=== PATIENT | female | born 1940 | race Caucasian/White ===

== ENCOUNTER 2016-08-21 16:20 | Emergency (ER) | payer MEDICARE, OTHER ==
[~2016-08-21] VITALS: Ht 160 cm; Wt 61.2 kg
[2016-08-21] MEDS ORDERED: TRAZ-144 PO (18:20)
[2016-08-21] MEDS ORDERED: ASPI81TA2 PO (18:20)
[2016-08-21] MEDS ORDERED: CLON0.5T4 PO (18:20)
[2016-08-21] MEDS ORDERED: RISP0.252 PO (18:20)
[2016-08-21] MEDS ORDERED: POTA10TA15 PO (18:20)
[2016-08-21] MEDS ORDERED: PRAV20TA4 PO (18:20)
[2016-08-21] MEDS ORDERED: CHOL100044 PO (18:20)
[2016-08-21] MEDS ORDERED: OLAN20TA3 PO (18:20)
[2016-08-21] MEDS ORDERED: LEVO50TA8 PO (18:20)
[2016-08-21 19:09] LABS: BASOPHILS # (AUTO) 0.1 /CMM (0.0-0.2); BASOPHILS % (AUTO) 0.9 % (0.0-2.0); DIFF TOTAL % 100 %; HEMATOCRIT 42 % (33-45); HEMOGLOBIN 13.6 g/dL (11.5-14.8); LYMPHOCYTES # (AUTO) 1.5 /CMM (0.8-4.8); LYMPHOCYTES % (AUTO) 20.2 % (20.0-44.0); MEAN CORPUSCULAR HEMOGLOBIN 28 PG (26.0-33.0); MEAN CORPUSCULAR HGB CONC 32 g/dl (31.0-36.0); MEAN CORPUSCULAR VOLUME 87 fL (82-100); MONOCYTES # (AUTO) 0.5 /CMM (0.1-1.30); MONOCYTES % (AUTO) 7.1 % (2.0-12.0); NEUTROPHILS # (AUTO) 5.5 /CMM (1.8-8.9); NEUTROPHILS % (AUTO) 71.8 % (43.0-81.0); PLATELET COUNT (AUTO) 202 /CMM (150-450); RED BLOOD CELL COUNT(AUTO) 4.86 MIL/uL (4.0-5.2); WHITE BLOOD COUNT (AUTO) 7.6 K/uL (4.3-11.0)
[2016-08-21 19:14] LABS: CALCIUM, SERUM 9.1 mg/dL (8.5-10.1); CREATININE 1.1 mg/dL (0.6-1.3); POTASSIUM 4.2 mmol/L (3.5-5.1)
[2016-08-21 19:18] LABS: INR 0.98 (0.87-1.13); PROTHROMBIN TIME 10.3 SECS (9.5-12.7)
[2016-08-21] MEDS ORDERED: CLONIDINE HCL 0.1 MG TABLET ONE (21:49)
[2016-08-21] MEDS ORDERED: CLONIDINE HCL 0.1 MG TABLET PO ONE (22:00)
[2016-08-21] MEDS ORDERED: NITROGLYCERIN 0.4 MG/TAB BOTTLE ONE (23:09)
[2016-08-21] MEDS ORDERED: NITROGLYCERIN 0.4 MG/TAB BOTTLE SL ONE (23:30)
[2016-08-21 23:48] VITALS: BP 162/82
== END 2016-08-21 23:49 | disposition home or self-care (01) ==
LOC: ER 16:25
DX: S09.90XA Unspecified injury of head, initial encounter (principal); S00.83XA Contusion of other part of head, initial encounter; E03.9 Hypothyroidism, unspecified; F03.90 Unspecified dementia, unspecified severity, without behavioral disturbance, psychotic disturbance, mood disturbance, and anxiety; I25.10 Atherosclerotic heart disease of native coronary artery without angina pectoris; F32.9 Major depressive disorder, single episode, unspecified; J44.9 Chronic obstructive pulmonary disease, unspecified; Z88.5 Allergy status to narcotic agent; Z79.82 Long term (current) use of aspirin; W18.39XA Other fall on same level, initial encounter; Y93.9 Activity, unspecified; Y92.9 Unspecified place or not applicable; Y99.9 Unspecified external cause status
CPT/HCPCS: 36415; 70450; 70486; 72125; 80048; 85025; 85730; 93005; 99285; A4606; Z7610

== ENCOUNTER 2017-07-31 12:46 | Emergency (ER) | payer MEDICARE, OTHER ==
[~2017-07-31] VITALS: Ht 160 cm; Wt 61.2 kg
[~2017-07-31 12:46] MED LIST: ASPI81TA2 PO; CHOL100044 PO; CLON0.5T4 PO; LEVO50TA8 PO; OLAN20TA3 PO; POTA10TA15 PO; PRAV20TA4 PO; RISP0.253 PO; TRAZ-144 PO
--- NOTE | 2017-07-31 12:46 | NUR ---
PT BIBRA FROM SNF TO ER BED 10. HERE FOR WORSENING COUGH X 1 WEEK. PT IS AFEBRILE FINANCIAL SYSTEMS ADMINISTRATOR. VERBALLY RESPONSIVE. DENIES PAIN. GOWNED AND PLACED ON MONITOR. NAD NOTED. AWAITING MD KAPADIA.
[2017-07-31] MEDS ORDERED: Magnesium 1GM/D5W 100ML PREMIX 200 ML IV ONE ×2 (12:55→13:05)
--- NOTE | 2017-07-31 12:55 | NUR ---
CALLED DR NISA YATES, LEFT MESSAGE
[2017-07-31] MEDS ORDERED: IPRATROPIUM NEB FS 0.5 MG/2.5 ML AMPUL.NEB NEB ONE (13:00)
[2017-07-31] MEDS ORDERED: methylPREDNISolone SOD SUCC 125 MG/2ML VIAL IV ONE (13:00)
[2017-07-31] MEDS ORDERED: ALBUTEROL FS 2.5 MG/3 ML VIAL.NEB NEB ONE (13:00)
[2017-07-31] MEDS ORDERED: IPRATROPIUM NEB FS 0.5 MG/2.5 ML AMPUL.NEB ONE (13:04)
[2017-07-31] MEDS ORDERED: ALBUTEROL FS 2.5 MG/3 ML VIAL.NEB ONE (13:04)
[2017-07-31 13:05] LABS: BASOPHILS # (AUTO) 0.3 /CMM (0.0-0.2); BASOPHILS % (AUTO) 3.6 % (0.0-2.0); EOSINOPHILS % (AUTO) 0.6 % (0.0-6.0); HEMATOCRIT 42 % (33-45); LYMPHOCYTES # (AUTO) 0.9 /CMM (0.8-4.8); LYMPHOCYTES % (AUTO) 12.4 % (20.0-44.0); MEAN CORPUSCULAR HEMOGLOBIN 29 PG (26.0-33.0); MEAN CORPUSCULAR HGB CONC 33 g/dl (31.0-36.0); MEAN CORPUSCULAR VOLUME 86 fL (82-100); MONOCYTES # (AUTO) 0.9 /CMM (0.1-1.30); MONOCYTES % (AUTO) 11.9 % (2.0-12.0); NEUTROPHILS # (AUTO) 5.1 /CMM (1.8-8.9); NEUTROPHILS % (AUTO) 71.5 % (43.0-81.0); PLATELET COUNT (AUTO) 156 /CMM (150-450); RDW COEFFICIENT OF VARIATION 13.7 (11.5-15.0); RED BLOOD CELL COUNT(AUTO) 4.89 MIL/uL (4.0-5.2); WHITE BLOOD COUNT (AUTO) 7.2 K/uL (4.3-11.0)
[2017-07-31] MEDS ORDERED: methylPREDNISolone SOD SUCC 125 MG/2ML VIAL ONE (13:05)
--- NOTE | 2017-07-31 13:13 | NUR ---
RADIOLOGY AT BEDSIDE FOR CHEST XRAY.
[2017-07-31 13:15] LABS: CALCIUM, SERUM 8.6 mg/dL (8.5-10.1); CARBON DIOXIDE 30 mmol/L (21-32); CHLORIDE 102 mmol/L (98-107); CREATININE 1.1 mg/dL (0.6-1.3); GLUCOSE 99 mg/dL (74-106); POTASSIUM 3.6 mmol/L (3.5-5.1); SODIUM SERUM 139 mmol/L (136-145); UREA NITROGEN, BLOOD 24 mg/dL (7-18)
--- NOTE | 2017-07-31 14:03 | NUR ---
CALLED [facility] FOR TRANSPORTATION GOING BACK TO [facility] ETA 1500
--- NOTE | 2017-07-31 15:37 | NUR ---
PT TRANSFERED BACK TO SNF. STABLE CONDITION. IVRJ D/C'D.
[2017-07-31 15:39] VITALS: BP 132/65
== END 2017-07-31 15:39 | disposition home or self-care (01) ==
LOC: ER 12:54
DX: J44.1 Chronic obstructive pulmonary disease with (acute) exacerbation (principal); F03.90 Unspecified dementia, unspecified severity, without behavioral disturbance, psychotic disturbance, mood disturbance, and anxiety; I25.10 Atherosclerotic heart disease of native coronary artery without angina pectoris; F32.9 Major depressive disorder, single episode, unspecified; E03.9 Hypothyroidism, unspecified; F17.200 Nicotine dependence, unspecified, uncomplicated; Z88.5 Allergy status to narcotic agent; Z88.2 Allergy status to sulfonamides; Z79.82 Long term (current) use of aspirin
CPT/HCPCS: 36415; 71010; 80048; 85025; 93005; 94640 ×2; 96365; 96366; 96375; 99285; 99406; A4606; J2930; J3475; Z7610

== ENCOUNTER 2020-03-09 14:29 | Inpatient (IN) | payer MEDICARE ==
[~2020-03-09] VITALS: Ht 160 cm; Wt 59.4 kg
[~2020-03-09 14:29] MED LIST changes: +ASPI-1169 PO; -ASPI81TA2 PO; -TRAZ-144 PO; +TRAZ-182 PO
--- NOTE | 2020-03-09 14:29 | NUR ---
PT ROSALINDA FROM [facility] FOR PLACEMENT. PT IS COVID POSITIVE. PT IS AAOX3, NOT IN RESPIRATORY DISTRESS, HOOKED TO RECEIVING LEAD. V/S STABLE. KEPT RESTED AND COMFORTABLE. WILL CONTINUE TO MONITOR.
--- NOTE | 2020-03-09 15:00 | NUR ---
GLOVE CUTTER AT BEDSIDE FOR XRAY.
--- NOTE | 2020-03-09 15:20 | NUR ---
PT IV LINE ESTABLISHED BLOOD DRAWN AND SENT TO LAB.
[2020-03-09 15:50] LABS: BASOPHILS % (AUTO) 0.6 % (0.0-2.0); HEMATOCRIT 34 % (33-45); HEMOGLOBIN 10.7 g/dL (11.5-14.8); LYMPHOCYTES # (AUTO) 0.9 /CMM (0.8-4.8); LYMPHOCYTES % (AUTO) 15.7 % (20.0-44.0); MEAN CORPUSCULAR HGB CONC 31 g/dl (31.0-36.0); MEAN CORPUSCULAR VOLUME 77 fL (82-100); MONOCYTES # (AUTO) 0.5 /CMM (0.1-1.30); MONOCYTES % (AUTO) 8.9 % (2.0-12.0); NEUTROPHILS # (AUTO) 4.3 /CMM (1.8-8.9); NEUTROPHILS % (AUTO) 74.8 % (43.0-81.0); PLATELET COUNT (AUTO) 192 /CMM (150-450); WHITE BLOOD COUNT (AUTO) 5.8 K/uL (4.3-11.0)
[2020-03-09 16:15] LABS: CALCIUM, SERUM 8.7 mg/dL (8.5-10.1); CARBON DIOXIDE 30 mmol/L (21-32); CHLORIDE 105 mmol/L (98-107); CREATININE 1.1 mg/dL (0.6-1.3); GLUCOSE 98 mg/dL (74-106); POTASSIUM 3.5 mmol/L (3.5-5.1); SODIUM SERUM 141 mmol/L (136-145); UREA NITROGEN, BLOOD 20 mg/dL (7-18)
[2020-03-09 16:18] LABS: FERRITIN 8 ng/mL (8-388)
[2020-03-09 16:21] LABS: ALANINE AMINOTRANSFERASE 14 U/L (12-78); ALKALINE PHOSPHATASE 61 U/L (46-116); ASPARTATE AMINOTRANSFERASE 17 U/L (15-37); B-TYPE NATRIURETIC PEPTIDE 235 PG/ML (0-125); BILIRUBIN,TOTAL 0.1 mg/dL (0.2-1.0); TOTAL PROTEIN, SERUM 6.3 g/dL (6.4-8.2)
--- NOTE | 2020-03-09 16:55 | NUR ---
COVID SWAB OBTAINED AND SENT TO LAB.
[2020-03-09 17:25] LABS: D-DIMER 0.79 mg/L(FEU (0.17-0.50)
[2020-03-09] MEDS ORDERED: IV NS 0.9% 250 ML IV ONE (17:39)
[2020-03-09] MEDS ORDERED: CT SWABBABLE VALVE TRANS SET 1 EA INFUS.SET MC ONE (17:39)
[2020-03-09] MEDS ORDERED: IOHEXOL-350 100 ML VIAL IV ONE (17:39)
--- NOTE | 2020-03-09 17:43 | NUR ---
LAB CALLED [facility] +
[2020-03-09] MEDS ORDERED: MECL-159 PO (17:54)
[2020-03-09] MEDS ORDERED: POTA-88 PO (17:54)
[2020-03-09] MEDS ORDERED: TRAZ-257 PO (17:54)
[2020-03-09] MEDS ORDERED: RISP2TAB23 PO (17:54)
[2020-03-09] MEDS ORDERED: BENA20TA9 PO (17:54)
[2020-03-09] MEDS ORDERED: BUPR100T6 PO (17:54)
[2020-03-09] MEDS ORDERED: AMLO5TAB4 PO (17:54)
[2020-03-09] MEDS ORDERED: ACET-73 PO (17:54)
[2020-03-09] MEDS ORDERED: LEVO75TA7 PO (17:54)
--- NOTE | 2020-03-09 18:45 | NUR ---
DINNER TRAY PROVIDED.
--- NOTE | 2020-03-09 19:14 | NUR ---
MOVE SHEET SUBMITTED AND CALLED FOR TELE BED.
--- NOTE | 2020-03-09 19:15 | NUR ---
REPORT GIVEN TO MELISSA YANEZ FOR AVANI.
--- NOTE | 2020-03-09 19:26 | NUR ---
REPORT RECEIVED FROM JOEL RN FOR AVANI
--- NOTE | 2020-03-09 19:29 | NUR ---
CALLED DR. YATES [phone] PAGED.
[2020-03-09] MEDS ORDERED: DEXAMETHASONE SOD PHOSPHATE 10 MG/ML VIAL ONE (19:56)
[2020-03-09] MEDS ORDERED: DEXAMETHASONE SOD PHOSPHATE 6 MG in IV D5W 50 ML IV ONE (20:00)
--- NOTE | 2020-03-09 20:08 | NUR ---
REPORT GIVEN TO MELISSA SANABRIA FOR AVANI
--- NOTE | 2020-03-09 20:24 | NUR ---
LINING FELLER BLINDSTITCH NOTES: PATIENT TRANSFERRED TO UNIT VIA ACLS PROTOCOL. PATIENT IS AN 79-YEAR-OLD FEMALE WITH DX: COPD EXACERBATION AND COVID19+. ASSESSMENT DONE. VITAL SIGNS TAKEN. PHOTOS OF SKIN ISSUES TAKEN AND PLACED IN CHART. HOOKED ON TO PUBLICATION DESIGNER, SHOWING NSR, HR 80s. IV ACCESS ON RIGHT AC G20 C/D/I; FLUSHING WELL. SALINE LOCKED. BED BATH PROVIDED. PATIENT ORIENTED TO ROOM. ENCOURAGED TO USE CALL LIGHT WHEN IN NEED OF ASSISTANCE. WILL CONT. TO MONITOR. AT 2155, SPOKE WITH DR. YATES AND UPDATED ON PATIENT'S STATUS. MADE AWARE OF MED RECON; REVIEWED BY MD. TELEPHONE ORDERS RECEIVED. RECOMMENDED FOR IV FLUIDS AND LABS IN AM; PER MD, NO NEED AT THIS TIME. COPIES MED RECON AND T.O. FORMS PLACED IN PHARMACY'S BIN AND PATIENT'S CHART. Addendum: 03/10/20 at 0447 by FRANK SWANSON RN DR. YATES ALSO MADE AWARE OF PATIENT'S LABS AND D DIMER RESULT 0.79. PATIENT NOW ON LOVENOX. WILL CONT. TO MONITOR.
--- NOTE | 2020-03-09 20:27 | NUR ---
PT TRANSFERRED TO ROOM VIA ACLS PROTOCOL
[2020-03-09 20:57] VITALS: BP 137/67
[2020-03-09] MEDS ORDERED: ENOXAPARIN SODIUM 40 MG/0.4 ML DISP.SYRIN SQ SCH (22:30)
[2020-03-09] MEDS ORDERED: ALBUTEROL SULFATE INH 18 GM HFA.AER.AD IH PRN (23:00)
[2020-03-09] MEDS: OLANZAPINE 10 MG TABLET PO SCH (23:44)
[2020-03-09] MEDS: TRAZODONE 50 MG TABLET PO SCH (23:44)
[2020-03-09] MEDS: ATORVASTATIN 10 MG TABLET PO SCH (23:44)
[2020-03-09] MEDS: ENOXAPARIN SODIUM 40 MG/0.4 ML DISP.SYRIN SQ SCH (23:46)
[2020-03-10] VITALS: BP 156/67
[2020-03-10 06:00] VITALS: BP 146/74
--- NOTE | 2020-03-10 07:29 | NUR ---
RN CLOSING NOTES: PATIENT IN NO ACUTE DISTRESS DURING SHIFT. MED RECON FAXED TO PHARMACY. ENDORSED TO AM RN FOR CONTINUITY OF CARE.
[2020-03-10 08:00] VITALS: BP 145/65
[2020-03-10] MEDS ORDERED: ACETAMINOPHEN ES 500 MG TABLET PO PRN (08:00)
--- NOTE | 2020-03-10 08:00 | NUR ---
CHARLENE RN [id number] NOTES RECEIVED PT IN BED. ALERT AND ORIENTED X2 . PT IS ON N/C 2L SAT 97%. PT IS ON NS ON TELEMONITOR IN 70'S.PT HAS R AC IS FLUSHING WELL AND INTACT.SAFETY MEASUREMENTS ARE IMPLEMENTED. BED IS IN THE LOWEST POSITION AND RAILS ARE UP X2.CALL LIGHT WITHIN REACH. WILL CONTINUE TO MONITOR.
--- NOTE | 2020-03-10 08:00 | NUR ---
RN OPENING NOTES RECEIEVED PT IN BED AWAKE AND ORIENTED x2, PT IS ON TELE MONITORING, SINUS RHYTHM, PT ON 2L VIA N/C SATURATING AT 97% WITH NO SOB NOTED AT THIS TIME, HOB ELEVATED TOLERATED, PT IS ON BEST REST AND IS ABLE TO USE BED HAGEN, ON SOFT DIET (LIANE), RIGHT AC 20" INTACT AND PATENT, SKIN IS INTACT WITH LEFT GROIN AND ANAL REDNESS NOTED, WILL FOLLOW TREATMENT PLAN, BED ON LOWEST POSITION AND LOCKED, NO DISTRESS NOTED AT THIS TIME, CALL LIGHT WITHIN REACH, WILL CONTINUE TO MONITOR
[2020-03-10] MEDS: CHOLECALCIFEROL 1,000 UNIT TABLET (VIT D3) PO SCH (08:53)
[2020-03-10] MEDS: DEXAMETHASONE SOD PHOSPHATE 10 MG/ML VIAL IV SCH (08:53)
[2020-03-10] MEDS: POTASSIUM CHLORIDE 20 MEQ TAB.PRT.SR PO SCH (08:53)
[2020-03-10] MEDS: risperiDONE 1 MG TABLET PO SCH ×2 (08:53→17:10)
[2020-03-10] MEDS: AMLODIPINE BESYLATE 5 MG TABLET PO SCH (08:54)
[2020-03-10] MEDS: BENAZEPRIL HCL 20 MG TABLET PO SCH (08:54)
[2020-03-10] MEDS ORDERED: ENOXAPARIN SODIUM 40 MG/0.4 ML DISP.SYRIN SQ SCH (09:00)
[2020-03-10] MEDS: LEVOTHYROXINE SODIUM 75 MCG TABLET PO SCH (09:09)
[2020-03-10] MEDS: buPROPion SR 100 MG TABLET.ER PO SCH (09:09)
[2020-03-10 12:00] VITALS: BP 165/67
[2020-03-10] MEDS: IPRATROPIUM/ALBUTEROL INHALER IH SCH ×2 (12:03→17:13)
--- NOTE | 2020-03-10 13:05 | NUR ---
CHARLENE RN NOTES DR YATES FACE TIME PT AND ASK FOR UPDATE. PT WANTED TO SMOKE SO DR YATES ORDER NICOTINE PATCH 21 MG FOR 30 DAYS . ORDER WAS PUT.
--- NOTE | 2020-03-10 13:15 | NUR ---
RN CHARLENE NOTE RT IS IN BED AWAKE, ALERT AND ABLE TO MAKE HER NEEDS KNOWN, SPOKE TO DR. YATES ABOUT PT'S CONDITION AND STATUS, OBTAINED NEW ORDER FOR NICOTINE PATCH 21MG DAILY x30 DAYS, FOLLOWED ORDER PT AWARE, V/S WITHIN NORMAL RANGE, PT CONTINUED ON 2L OF OXYGEN VIA N/C WITH SATURATION OF 95%, PT KEPT CLEAN AND DRY, ALL SAFETY MEASURES FOLLOWED PER COVID-19 ISOLATION PROTCOL, BED LOCKED AND IN LOWEST POSITION, CALL LIGHT WITHIN REACH AND FUNCTIONING, NO DISTRESS OR SOB NOTED, HOB ELEVATED TOLERATED, WILL CONTINUE TO MONITOR AND ASSESS PT
[2020-03-10 16:00] VITALS: BP 133/71
[2020-03-10 16:19] LABS: IRON, SERUM 17 ug/dl (50-175); TOTAL IRON BINDING CAPACITY 351 ug/dl (250-450)
--- NOTE | 2020-03-10 18:20 | NUR ---
CHARLENE RN CLOSING NOTES PT IS RESTING IN BED. ALERT AND ORIENTED x2, PT IS ON TELE MONITORING, SINUS RHYTHM, PT ON 2L VIA N/C SATURATING AT 97% WITH NO SOB OR DISTRESS NOTED AT MY SHIFT. PT'S BED IS ELEVATED 45 DEGREE. RIGHT AC #20 IS INTACT AND FLUSHED WELL. BED IS ON LOWEST POSITION LOCKED AND RAILS ARE UP X2. CALL LIGHT WITHIN REACH, WILL ENDORSE TO NIGHTSHIFT FOR AVANI
--- NOTE | 2020-03-10 19:30 | NUR ---
RN OPENING NOTES received the client resting in bed. A/O x2 with confussion episodes. The client denies pain, no s/s of pain. No s/s of distress at this time. The client is on external telemonitor, NSR, HR 70's. The client has a RAC 20G. right eye pupil sluggish and unequal upon assessment, and previously noted. Vision seem intact. All needs have been rendered at this time. All safety mechanisms in place, will continue to monitor.
[2020-03-10 20:00] VITALS: BP 150/74
[2020-03-10] MEDS: ENOXAPARIN SODIUM 40 MG/0.4 ML DISP.SYRIN SQ SCH (21:14)
[2020-03-10] MEDS: TRAZODONE 50 MG TABLET PO SCH (21:15)
[2020-03-10] MEDS: ATORVASTATIN 10 MG TABLET PO SCH (21:15)
[2020-03-10] MEDS: OLANZAPINE 10 MG TABLET PO SCH (21:15)
[2020-03-10] MEDS ORDERED: OLANZAPINE 10 MG TABLET PO SCH (22:00)
[2020-03-10] MEDS ORDERED: TRAZODONE 50 MG TABLET PO SCH (22:00)
[2020-03-11] VITALS: BP 128/76
[2020-03-11] MEDS: IPRATROPIUM/ALBUTEROL INHALER IH SCH ×4 (00:04→18:45)
--- NOTE | 2020-03-11 03:12 | NUR ---
RN NOTES No change of condition at this time. Client is resting.
[2020-03-11 04:00] VITALS: BP 180/90
--- NOTE | 2020-03-11 04:00 | NUR ---
RN NOTES The Charge nurse is aware of clients change in blood pressure. SBP 170/90. HR 100 - 120.
--- NOTE | 2020-03-11 04:12 | NUR ---
RN NOTES The hospitalist ( Simona Morocho) has been made aware that the client is having BP 170/90; HR 111. Will wait for the hospitalist response.
--- NOTE | 2020-03-11 04:47 | NUR ---
RN NOTES Called epic line at [phone] trying to reach the hospitalist, they will also text the hospitalist as it is the default choice of the hospitalist to communicate.
[2020-03-11] MEDS ORDERED: hydrALAZINE HCL IV 20 MG VIAL IV ONE (05:30)
--- NOTE | 2020-03-11 05:33 | NUR ---
RN NOTES The hospitalist has order 10mg hydralazine IV once. The medication has been given, will monitor BP.
[2020-03-11 05:59] VITALS: BP 140/104
--- NOTE | 2020-03-11 06:00 | NUR ---
RN NOTES Current BP 140/104; HR 104
--- NOTE | 2020-03-11 06:23 | NUR ---
RN NOTES The client is agitated stating to want to got because she "is getting ." She continues to say she needs to get out of the hospital trying to get out of bed. Soft wrist restraints have been ordered to preserve the safety of the client. Will endorse to the incomign nurse.
--- NOTE | 2020-03-11 06:43 | NUR ---
RN CLOSING NOTES BP is controlled. 140/70. The client is on external telemonitor, NSR, HR 70's at this time. Client is A/O x 1 -2 with episodes of agitation and confusion. No s/s of distress or pain. Client is saturating at 98 -100% on 2L NC. All needs rendered at this time. Will communicate to the incoming nurse.
--- NOTE | 2020-03-11 07:30 | NUR ---
RN OPENING NOTES RECEIVED PT IN BED, A/OX2, NASAL CANULA DELIVERING 02 @2L, SATURATING WELL, NO SOB, NO DISTRESS, O2SAT 96%, PATIENT IS ON TELEMONITOR WITH NORMAL SINUS RHYTHM, IV LINE ON R AC NOTED, PATENT AND FLUSHED, SAFETY MEASURES IMPLEMENTED, BED IN LOWEST POSITION CALL LIGHT IN REACH, WILL CONT TO MONITOR
[2020-03-11] MEDS: LEVOTHYROXINE SODIUM 75 MCG TABLET PO SCH (07:34)
[2020-03-11 08:00] VITALS: BP 146/74
[2020-03-11] MEDS: risperiDONE 1 MG TABLET PO SCH ×2 (08:29→16:22)
[2020-03-11] MEDS: DEXAMETHASONE SOD PHOSPHATE 10 MG/ML VIAL IV SCH (08:29)
[2020-03-11] MEDS: BENAZEPRIL HCL 20 MG TABLET PO SCH (08:30)
[2020-03-11] MEDS: POTASSIUM CHLORIDE 20 MEQ TAB.PRT.SR PO SCH (08:30)
[2020-03-11] MEDS: CHOLECALCIFEROL 1,000 UNIT TABLET (VIT D3) PO SCH (08:30)
[2020-03-11] MEDS ORDERED: NICOTINE PATCH (21MG) 21 MG PATCH.TD24 TD SCH (09:00)
[2020-03-11] MEDS: buPROPion SR 100 MG TABLET.ER PO SCH (09:03)
[2020-03-11] MEDS: AMLODIPINE BESYLATE 5 MG TABLET PO SCH (09:04)
[2020-03-11 12:00] VITALS: BP 145/74
[2020-03-11] MEDS ORDERED: SOD FERRIC GLUC 125 MG in IV NS 0.9% 100 ML IV SCH (14:00)
--- NOTE | 2020-03-11 15:09 | NUR ---
Ferrlecit not in patient OMNICELL . pharmacy notified
[2020-03-11 16:00] VITALS: BP 142/72
--- NOTE | 2020-03-11 19:00 | NUR ---
PATIENT IS DISCARDING TO SOFYA SANTOS, EMT TEAM IN ROOM, WILL TRANSPORT VIA [facility] ; EDUCATION PROVIDED, DISCHARGE PAPERWORK PROVIDED , RELATIVES NOTIFIED ; ALL LINES REMOVED, PATIENT IS CLEAN, NO PAIN, OR SOB NOTED
[2020-03-12] MEDS ORDERED: DEXAMETHASONE 4 MG TABLET PO SCH (09:00)
== END 2020-03-11 21:14 | DRG 177 ==
LOC: ER 14:31 → TELE1 20:01
PROVIDERS: ADMIT Internal Medicine; ATTEND Internal Medicine
DX: U07.1 COVID-19 (principal); J12.89 Other viral pneumonia; J44.0 Chronic obstructive pulmonary disease with (acute) lower respiratory infection; D50.9 Iron deficiency anemia, unspecified; I25.10 Atherosclerotic heart disease of native coronary artery without angina pectoris; I10 Essential (primary) hypertension; E03.9 Hypothyroidism, unspecified; F02.80 Dementia in other diseases classified elsewhere, unspecified severity, without behavioral disturbance, psychotic disturbance, mood disturbance, and anxiety; G30.9 Alzheimer's disease, unspecified; Z79.82 Long term (current) use of aspirin; Z88.2 Allergy status to sulfonamides; F99 Mental disorder, not otherwise specified
CPT/HCPCS: 36415; 71045-TC; 80053-TC; 82728-TC; 83540-TC; 83615-TC; 83880; 84484-TC; 85025-TC; 85378-TC; 85610-TC; 85730-TC; 86140-TC; 87040-TC; 87081-TC; G0378; J0360; J1100; J1650; J2916; J7030; J7050; J7060; Q9967

== ENCOUNTER 2020-08-11 11:51 | Emergency (ER) | payer MEDICARE ==
[~2020-08-11] VITALS: Ht 160 cm; Wt 65.8 kg
[~2020-08-11 11:51] MED LIST changes: +ACET-73 PO; +AMLO5TAB4 PO; -ASPI-1169 PO; +BENA20TA9 PO; +BUPR100T6 PO; -CLON0.5T4 PO; -LEVO50TA8 PO; +LEVO75TA7 PO; +POTA-88 PO; -POTA10TA15 PO; -PRAV20TA4 PO; -RISP0.253 PO; +RISP2TAB85 PO; -TRAZ-182 PO; +TRAZ-257 PO
[2020-08-11] MEDS ORDERED: ONDANSETRON HCL/PF 4 MG/2 ML VIAL IVP ONE (12:30)
[2020-08-11] MEDS ORDERED: IV NS 0.9% 500 ML BAG IV ONE (12:30)
--- NOTE | 2020-08-11 12:30 | NUR ---
Patient Shirin, from [facility], for poor oral intake and generalized weakness x 2 days. On room air, breathing evenly and unlabored. Connected to the monitor and pulse ox. kept comfortable, will continue to monitor accordingly.
[2020-08-11 12:56] LABS: BASOPHILS % (AUTO) 0.7 % (0.0-2.0); HEMATOCRIT 37 % (33-45); HEMOGLOBIN 11.7 g/dL (11.5-14.8); LYMPHOCYTES # (AUTO) 0.8 /CMM (0.8-4.8); LYMPHOCYTES % (AUTO) 12.4 % (20.0-44.0); MEAN CORPUSCULAR HGB CONC 32 g/dl (31.0-36.0); MEAN CORPUSCULAR VOLUME 80 fL (82-100); MONOCYTES # (AUTO) 0.5 /CMM (0.1-1.30); MONOCYTES % (AUTO) 7.5 % (2.0-12.0); NEUTROPHILS # (AUTO) 5.4 /CMM (1.8-8.9); NEUTROPHILS % (AUTO) 79.4 % (43.0-81.0); PLATELET COUNT (AUTO) 241 /CMM (150-450); RED BLOOD CELL COUNT(AUTO) 4.58 MIL/uL (4.0-5.2); WHITE BLOOD COUNT (AUTO) 6.8 K/uL (4.3-11.0)
[2020-08-11] MEDS ORDERED: ONDANSETRON HCL/PF 4 MG/2 ML VIAL ONE (12:59)
[2020-08-11 13:05] LABS: CALCIUM, SERUM 9.4 mg/dL (8.5-10.1); CARBON DIOXIDE 31 mmol/L (21-32); CHLORIDE 106 mmol/L (98-107); CREATININE 1.1 mg/dL (0.6-1.3); GLUCOSE 85 mg/dL (74-106); POTASSIUM 4.1 mmol/L (3.5-5.1); SODIUM SERUM 143 mmol/L (136-145); UREA NITROGEN, BLOOD 25 mg/dL (7-18)
[2020-08-11 13:10] LABS: ALANINE AMINOTRANSFERASE 17 U/L (12-78); ALBUMIN 3.2 g/dL (3.4-5.0); ALKALINE PHOSPHATASE 94 U/L (46-116); ASPARTATE AMINOTRANSFERASE 16 U/L (15-37); BILIRUBIN,DIRECT 0.1 mg/dL (0.0-0.2); BILIRUBIN,TOTAL 0.2 mg/dL (0.2-1.0); LIPASE 124 U/L (73-393); TOTAL PROTEIN, SERUM 7.4 g/dL (6.4-8.2)
[2020-08-11 13:44] LABS: BILIRUBIN,URINE Negative (NEGATIVE); COLOR,URINE YELLOW (YELLOW); LEUKOCYTE ESTERASE ,URINE Negative (NEGATIVE); NITRITE, URINE Negative (NEGATIVE); PROTEIN,URINE Negative (NEGATIVE); UGLUCOSE Negative (NEGATIVE); UROBILINOGEN,URINE 0.2 EU/dL (0.2)
--- NOTE | 2020-08-11 14:20 | NUR ---
CALLED TRANSPORT [facility] ETA 1800 [facility] ETA IS [phone]
[2020-08-11 16:25] VITALS: BP 118/78
--- NOTE | 2020-08-11 16:26 | NUR ---
Patient discharged to home in stable condition. Written and verbal after care instructions given. Patient verbalizes understanding of instruction.IV removed. Catheter intact and site benign. Pressure and 4x4 applied to site. No bleeding noted.
== END 2020-08-11 16:26 ==
LOC: ER 11:56
DX: E86.0 Dehydration (principal); R41.0 Disorientation, unspecified; F03.90 Unspecified dementia, unspecified severity, without behavioral disturbance, psychotic disturbance, mood disturbance, and anxiety; I25.2 Old myocardial infarction; J44.9 Chronic obstructive pulmonary disease, unspecified; F32.9 Major depressive disorder, single episode, unspecified; E03.9 Hypothyroidism, unspecified; Z88.2 Allergy status to sulfonamides; Z88.5 Allergy status to narcotic agent; Z79.899 Other long term (current) drug therapy
CPT/HCPCS: 36415; 71045; 80048; 80076; 81003; 82962; 83605; 83690; 84484; 85025; 85730; 87040 ×2; 87086; 93005; 96374; 99285; J2405; J7040

== ENCOUNTER 2020-12-30 13:20 | Inpatient (IN) | payer MEDICARE ==
[~2020-12-30] VITALS: Ht 165.1 cm; Wt 57.2 kg
[~2020-12-30 13:20] MED LIST changes: +ALENDRONATE 70 MG TABLET PO SCH
--- NOTE | 2020-12-30 13:30 | NUR ---
BIB [facility] for l hip pain s/p GLF yesterday. Connected to the monitor and pulse ox. breathing evenly and unlabored. Kept comfortable, will continue to monitor accordingly.
[2020-12-30 13:57] LABS: BASOPHILS # (AUTO) 0.1 /CMM (0.0-0.2); BASOPHILS % (AUTO) 0.5 % (0.0-2.0); HEMATOCRIT 37 % (33-45); HEMOGLOBIN 11.6 g/dL (11.5-14.8); LYMPHOCYTES # (AUTO) 0.7 /CMM (0.8-4.8); LYMPHOCYTES % (AUTO) 5.6 % (20.0-44.0); MEAN CORPUSCULAR HGB CONC 31 g/dl (31.0-36.0); MEAN CORPUSCULAR VOLUME 80 fL (82-100); MONOCYTES # (AUTO) 0.8 /CMM (0.1-1.30); MONOCYTES % (AUTO) 6.7 % (2.0-12.0); NEUTROPHILS # (AUTO) 10.4 /CMM (1.8-8.9); NEUTROPHILS % (AUTO) 87.2 % (43.0-81.0); PLATELET COUNT (AUTO) 231 /CMM (150-450); RED BLOOD CELL COUNT(AUTO) 4.65 MIL/uL (4.0-5.2); WHITE BLOOD COUNT (AUTO) 11.9 K/uL (4.3-11.0)
[2020-12-30] MEDS ORDERED: RISP0.2515 PO (14:01)
[2020-12-30] MEDS ORDERED: ALEN70TA80 PO (14:01)
[2020-12-30] MEDS ORDERED: PRAV20TA4 PO (14:01)
[2020-12-30 14:54] LABS: CARBON DIOXIDE 22 mmol/L (21-32); CHLORIDE 105 mmol/L (98-107); SODIUM SERUM 142 mmol/L (136-145)
[2020-12-30 14:55] LABS: CALCIUM, SERUM 9.3 mg/dL (8.5-10.1); CREATININE 1.2 mg/dL (0.6-1.3); GLUCOSE 105 mg/dL (74-106); UREA NITROGEN, BLOOD 21 mg/dL (7-18)
[2020-12-30 15:07] LABS: ALANINE AMINOTRANSFERASE 17 U/L (12-78); ALBUMIN 3.1 g/dL (3.4-5.0); ALKALINE PHOSPHATASE 82 U/L (46-116); ASPARTATE AMINOTRANSFERASE 18 U/L (15-37); BILIRUBIN,DIRECT 0.2 mg/dL (0.0-0.2); BILIRUBIN,TOTAL 0.5 mg/dL (0.2-1.0)
[2020-12-30 15:08] LABS: TOTAL PROTEIN, SERUM 7.3 g/dL (6.4-8.2)
[2020-12-30] MEDS ORDERED: IV NS 0.9% 500 ML BAG IV ONE (16:00)
[2020-12-30 16:24] LABS: BILIRUBIN,URINE NEGATIVE (NEGATIVE); COLOR,URINE YELLOW (YELLOW); LEUKOCYTE ESTERASE ,URINE NEGATIVE (NEGATIVE); NITRITE, URINE NEGATIVE (NEGATIVE); PROTEIN,URINE NEGATIVE (NEGATIVE); UGLUCOSE NEGATIVE (NEGATIVE); UROBILINOGEN,URINE 0.2 EU/dL (0.2)
--- NOTE | 2020-12-30 19:28 | NUR ---
REPORT GIVEN TO IJEOMA TORRES AT BEDSIDE
[2020-12-30 19:30] VITALS: BP 172/72
--- NOTE | 2020-12-30 19:40 | NUR ---
MS RN NOTE ADMITTED 80 YEARS OLD FEMALE PT FROM ER WITH THE DX OF BACK PAIN S/P FALL, AZOTEMIA. A/O X 1-2, NO SOB, NO DISTRESS OR DISCOMFORT NOTED. C/O PAIN ONLY WHEN MOVING IN BED. LT HAND WITH SL #18G INTACT AND PATENT. SKIN ASSESSMENT DONE, PICTURES TAKEN. KEPT HER DRY AND CLEAN. ALL NEEDS ATTENDED. SIDE RAILS UP X 3 AND CALL LIGHT WITHIN REACH. BED ALARM ON. CONTINUE TO MONITOR HER.
[2020-12-30] MEDS ORDERED: TRAZODONE 50 MG TABLET PO PRN (20:30)
[2020-12-30] MEDS ORDERED: Z GUARD REMEDY 2 OZ OINT TP PRN (20:30)
[2020-12-30] MEDS ORDERED: ONDANSETRON HCL/PF 4 MG/2 ML VIAL IVP PRN (20:30)
[2020-12-30] MEDS ORDERED: MAG HYDROX/AL HYDROX/SIMETH 30 ML UDC PO PRN (20:30)
[2020-12-30] MEDS ORDERED: ACETAMINOPHEN 325 MG TABLET PO PRN (20:30)
[2020-12-30] MEDS ORDERED: MAGNESIUM HYDROXIDE 30 ML UDC PO PRN (20:30)
[2020-12-30] MEDS ORDERED: HYDROCODONE/APAP 5/325MG TABLET PO PRN (20:30)
[2020-12-30] MEDS: ATORVASTATIN 10 MG TABLET PO SCH (21:19)
[2020-12-30] MEDS: HYDROCODONE/APAP 5/325MG TABLET PO PRN (21:19)
[2020-12-30] MEDS: OLANZAPINE 10 MG TABLET PO SCH (21:20)
[2020-12-30] MEDS: ENOXAPARIN SODIUM 40 MG/0.4 ML DISP.SYRIN SQ SCH (21:20)
[2020-12-30] MEDS: IV NS 0.9% 1,000 ML IV PRN (21:22)
[2020-12-31 04:00] VITALS: BP 178/78
[2020-12-31 06:08] LABS: BASOPHILS # (AUTO) 0.1 /CMM (0.0-0.2); BASOPHILS % (AUTO) 0.6 % (0.0-2.0); HEMATOCRIT 34 % (33-45); HEMOGLOBIN 10.8 g/dL (11.5-14.8); LYMPHOCYTES % (AUTO) 12.2 % (20.0-44.0); MEAN CORPUSCULAR HGB CONC 32 g/dl (31.0-36.0); MEAN CORPUSCULAR VOLUME 79 fL (82-100); MONOCYTES # (AUTO) 0.8 /CMM (0.1-1.30); MONOCYTES % (AUTO) 9.9 % (2.0-12.0); NEUTROPHILS # (AUTO) 6.5 /CMM (1.8-8.9); NEUTROPHILS % (AUTO) 77.3 % (43.0-81.0); PLATELET COUNT (AUTO) 195 /CMM (150-450); RED BLOOD CELL COUNT(AUTO) 4.26 MIL/uL (4.0-5.2); WHITE BLOOD COUNT (AUTO) 8.4 K/uL (4.3-11.0)
[2020-12-31 06:33] LABS: CALCIUM, SERUM 8.4 mg/dL (8.5-10.1); CREATININE 0.9 mg/dL (0.6-1.3); MAGNESIUM 2.1 mg/dL (1.8-2.4); PHOSPHORUS 3.5 mg/dL (2.5-4.9); POTASSIUM 3.4 mmol/L (3.5-5.1)
[2020-12-31 06:45] LABS: THYROID STIMULATING HORMONE 6.49 uIU/mL (0.358-3.74)
--- NOTE | 2020-12-31 06:45 | NUR ---
MS RN NOTE PT IN BED ASLEEP, EASILY AROUSABLE. NO DISTRESS OR DISCOMFORT NOTED. ESTEVAN HARNESS MAKER PAGED EARLIER DUE TO PT WITH HIGH B/P STILL WAITING FOR HER TO CALL US BACK. IVF INFUSING WELL. NO S/S OF INFILTRATION NOTED. SIDE RAILS UP X 2 AND CALL LIGHT WITHIN REACH. WILL ENDORSE TO DAY SHIFT NURSE FOR CONTINUE TO CARE.
--- NOTE | 2020-12-31 07:25 | NUR ---
RN OPENING NOTES PATIENT RECEIVED IN BED RESTING IN RIGHT LATERAL POSITION. PATIENT IS A&OX1-2. PATIENT IS ON O2 THERAPY VIA NC AT 3 LPM TOLERATING WELL. NO SOB OR RESP DISTRESS NOTED. LEFT HAND IV #18 RUNNING NS AT 75 ML/HR. NO S/S OF INFILTRATION. SAFETY PRECAUTIONS IMPLEMENTED, SIDE RAILS UP X2, BED LOCKED IN LOWEST POSITION, CALL LIGHT WITHIN REACH. WILL CONTINUE TO MONITOR AND PROVIDE CARE THROUGHOUT SHIFT.
[2020-12-31] MEDS ORDERED: LEVOTHYROXINE SODIUM 75 MCG TABLET PO SCH (07:30)
[2020-12-31] MEDS ORDERED: HYDROCODONE/APAP 10/325MG TABLET PO PRN (09:00)
[2020-12-31] MEDS: buPROPion SR 100 MG TABLET.ER PO SCH (09:34)
[2020-12-31] MEDS: CHOLECALCIFEROL 1,000 UNIT TABLET (VIT D3) PO SCH (09:34)
[2020-12-31] MEDS: risperiDONE 1 MG TABLET PO SCH ×2 (09:35→17:43)
[2020-12-31] MEDS: BENAZEPRIL HCL 20 MG TABLET PO SCH (09:35)
[2020-12-31] MEDS: AMLODIPINE BESYLATE 5 MG TABLET PO SCH (09:36)
[2020-12-31] MEDS: HYDROCODONE/APAP 5/325MG TABLET PO PRN (10:49)
[2020-12-31] MEDS: ENSURE ENLIVE 237 ML LIQUID (VANILLA) PO SCH ×2 (11:00→17:43)
[2020-12-31] MEDS ORDERED: POTASSIUM CHLORIDE 20 MEQ TAB.PRT.SR PO SCH (11:00)
--- NOTE | 2020-12-31 11:03 | NUR ---
WOUND CARE CONSULT: PT PRESENTS WITH RED RASH TO ABD/GROIN FOLDS, UMBILICUS AND PERINEAL AREAS, PRESENT ON ADMISSION. RECOMMENDATIONS MADE FOR SKIN PROTECTION. DISCUSSED WITH NURSING STAFF. PT IS INCONTINENT. PT TO BE PLACED ON ESTEFANY ISOFLEX LOW AIRLOSS BED. MD IN AGREEMENT WITH PLAN OF CARE. Addendum: 12/31/20 at 1104 by CAIT BURRELL WNDNU Amended: Links added.
[2020-12-31] MEDS: CLOTRIMAZOLE 1% 15 GM TUBE TP SCH (17:43)
--- NOTE | 2020-12-31 19:20 | NUR ---
RN OPENING NOTE RECEIVED PATIENT IN BED RESTING ALERT ORIENTED X1-2 VERBALLY RESPONSIVE ON 3L OXYGEN VIA NASAL CANNULA,O2:97% IV SITE IS ON LEFT HAND INTACT PATENT IV HYDRATION NS 0.9% 75CC/HR RUNNING,INCONTINENT TO BOWEL/BLADDER SAFETY MEASURE IMPLEMENT BED IN LOW POSITION AND LOCKED,BED ALARM IS ON CONTINUE TO MONITOR
--- NOTE | 2020-12-31 19:29 | NUR ---
RN CLOSING NOTES PATIENT IN BED RESTING IN RIGHT LATERAL POSITION. PATIENT IS A&OX1-2. PATIENT IS ON O2 THERAPY VIA NC AT 3 LPM TOLERATING WELL. NO SOB OR RESP DISTRESS NOTED. LEFT HAND IV #18 RUNNING NS AT 75 ML/HR. NO S/S OF INFILTRATION. SAFETY PRECAUTIONS IMPLEMENTED, SIDE RAILS UP X2, BED LOCKED IN LOWEST POSITION, CALL LIGHT WITHIN REACH. WILL ENDORSE CARE TO UPCOMING SHIFT.
[2020-12-31] MEDS: ENOXAPARIN SODIUM 40 MG/0.4 ML DISP.SYRIN SQ SCH (20:10)
[2020-12-31] MEDS: ATORVASTATIN 10 MG TABLET PO SCH (21:12)
[2020-12-31] MEDS: OLANZAPINE 10 MG TABLET PO SCH (21:12)
[2020-12-31] MEDS: IV NS 0.9% 1,000 ML IV PRN (22:46)
--- NOTE | 2021-01-01 05:15 | NUR ---
RN NOTE NORCO 5-325 MG PRN GIVEN FOR PAIN 03/25 CONTINUE TO MONITOR.
--- NOTE | 2021-01-01 05:15 | NUR ---
RN NOTE PT BP IS 172/83 HR 95,NO BP MED PRN, CALLED CARTOGRAPHIC DRAFTER SENIOR POWER SCHEDULER CHRIS FONTENOT NO NEW ORDER PAIN PILL FOR PAIN MANAGEMENT,NOTED AND CARRIED OUT.
--- NOTE | 2021-01-01 05:15 | NUR ---
RN NOTE PATIENT IV LINE PULLED IT OUT,STARTED A NEW IV LINE ON RIGHT FOREARM #20 G WITH GOOD BLOOD RETURN NO INFILTRATION,PATENT AND INTACT CONTINUE TO MONITOR.
[2021-01-01] MEDS: HYDROCODONE/APAP 5/325MG TABLET PO PRN (05:19)
[2021-01-01 06:39] LABS: BASOPHILS # (AUTO) 0.1 /CMM (0.0-0.2); BASOPHILS % (AUTO) 0.7 % (0.0-2.0); HEMATOCRIT 33 % (33-45); HEMOGLOBIN 10.5 g/dL (11.5-14.8); LYMPHOCYTES # (AUTO) 0.9 /CMM (0.8-4.8); LYMPHOCYTES % (AUTO) 12.1 % (20.0-44.0); MEAN CORPUSCULAR HGB CONC 32 g/dl (31.0-36.0); MEAN CORPUSCULAR VOLUME 80 fL (82-100); MONOCYTES # (AUTO) 0.7 /CMM (0.1-1.30); MONOCYTES % (AUTO) 9.2 % (2.0-12.0); PLATELET COUNT (AUTO) 190 /CMM (150-450); RED BLOOD CELL COUNT(AUTO) 4.06 MIL/uL (4.0-5.2); WHITE BLOOD COUNT (AUTO) 7.7 K/uL (4.3-11.0)
--- NOTE | 2021-01-01 06:56 | NUR ---
RN CLOSING NOTE PATIENT REMAINS ON ALERT ORIENTED X1 VERBALLY RESPONSIVE ON 3L OXYGEN VIA NASAL CANNULA,O2:95% NO SOB NOT ACUTE DISTRESS NOTED,IV SITE IS ON RIGHT FOREARM INTACT PATENT IV HYDRATION RUNNING 75CC/HR,ALL DUE MEDS GIVEN MD ORDERED KEPT CLEAN AND DRY ALL THE TIME,KEPT COMFORTABLE ALL NEEDS MET ENDORSE NEXT COMING SHIFT FOR CONTINUATION OF CARE.
[2021-01-01 06:58] LABS: CALCIUM, SERUM 7.9 mg/dL (8.5-10.1); CREATININE 0.8 mg/dL (0.6-1.3); POTASSIUM 3.4 mmol/L (3.5-5.1)
[2021-01-01] MEDS ORDERED: LEVOTHYROXINE SODIUM 100 MCG TABLET PO SCH (07:30)
--- NOTE | 2021-01-01 07:35 | NUR ---
RN OPENING NOTE PATIENT IS CURRENTLY IN BED WITH HOB AT SEMI FOWLERS POSITION. PATIENT IS ON 3L NC. PATIENT IS AOX1-2. R FOREARM IV ACCESS IS PATENT AND INTACT. BED IS LOCKED IN THE LOWEST POSITION, 3 GUARD RAILS RAISED, CALL MCKEON WITHIN REACH, AND ALL HOSPITAL SAFETY PRECAUTIONS ARE BEING FOLLOWED. WILL CONTINUE TO MONITOR THROUGHOUT SHIFT.
[2021-01-01] MEDS: risperiDONE 1 MG TABLET PO SCH (08:15)
[2021-01-01] MEDS: buPROPion SR 100 MG TABLET.ER PO SCH (08:15)
[2021-01-01] MEDS: CHOLECALCIFEROL 1,000 UNIT TABLET (VIT D3) PO SCH (08:15)
[2021-01-01 08:16] VITALS: BP 140/70
[2021-01-01] MEDS: BENAZEPRIL HCL 20 MG TABLET PO SCH (08:16)
[2021-01-01] MEDS: AMLODIPINE BESYLATE 5 MG TABLET PO SCH (08:16)
[2021-01-01] MEDS: ENSURE ENLIVE 237 ML LIQUID (VANILLA) PO SCH (08:20)
[2021-01-01] MEDS ORDERED: POTASSIUM CHLORIDE 20 MEQ TAB.PRT.SR PO ONE (08:30)
[2021-01-01] MEDS: CLOTRIMAZOLE 1% 15 GM TUBE TP SCH (09:44)
--- NOTE | 2021-01-01 15:55 | NUR ---
RN NOTE REPORT GIVEN TO EMT FOR AVANI. PATIENT IS CURRENTLY IN STABLE CONDITION AT TIME OF DC.
[2021-01-06] MEDS ORDERED: ALENDRONATE 70 MG TABLET PO SCH (07:30)
== END 2021-01-01 16:39 | DRG 73 ==
LOC: ER 13:22 → MEDSG1 18:56
PROVIDERS: ATTEND Nurse Practitioner Acute Care
DX: G90.8 Other disorders of autonomic nervous system (principal); N17.0 Acute kidney failure with tubular necrosis; G93.40 Encephalopathy, unspecified; M62.82 Rhabdomyolysis; F02.81 Dementia in other diseases classified elsewhere, unspecified severity, with behavioral disturbance; S79.811A Other specified injuries of right hip, initial encounter; M25.552 Pain in left hip; E03.9 Hypothyroidism, unspecified; F32.9 Major depressive disorder, single episode, unspecified; I25.10 Atherosclerotic heart disease of native coronary artery without angina pectoris; Z86.73 Personal history of transient ischemic attack (TIA), and cerebral infarction without residual deficits; W18.30XA Fall on same level, unspecified, initial encounter; Y99.8 Other external cause status; M19.90 Unspecified osteoarthritis, unspecified site; I10 Essential (primary) hypertension; E78.5 Hyperlipidemia, unspecified; D50.9 Iron deficiency anemia, unspecified; E86.0 Dehydration; E87.6 Hypokalemia; G30.9 Alzheimer's disease, unspecified; J44.9 Chronic obstructive pulmonary disease, unspecified; M81.0 Age-related osteoporosis without current pathological fracture; Z20.822 Contact with and (suspected) exposure to COVID-19; Z90.710 Acquired absence of both cervix and uterus; Z88.2 Allergy status to sulfonamides; F29 Unspecified psychosis not due to a substance or known physiological condition; T50.995A Adverse effect of other drugs, medicaments and biological substances, initial encounter; Y92.89 Other specified places as the place of occurrence of the external cause
CPT/HCPCS: 36415; 70450-TC; 71045-TC; 72192-TC; 73502; 73552; 73590-TC; 80048-TC; 80061-TC; 80076-TC; 83735-TC; 84100-TC; 84443-TC; 84484-TC; 85025-TC; 87081-TC; 94799-TC; 97112-TC; 97530-TC; G0378; J1650; J7030; J7040; U0003

== ENCOUNTER 2021-05-29 20:36 | Inpatient (IN) | payer MEDICARE ==
[~2021-05-29] VITALS: Ht 160 cm; Wt 54.0 kg
[~2021-05-29 20:36] MED LIST changes: -ACET-73 PO; +ALEN70TA80 PO; -ALENDRONATE 70 MG TABLET PO SCH; +PRAV20TA4 PO; +RISP0.2515 PO; -RISP2TAB85 PO
--- NOTE | 2021-05-29 20:55 | NUR ---
PATIENT CAME TO THE ER BED 7 BIBEMS FROM [facility] C/O NAUSEA VOMITING AND DIARRHEA. PATIENT IS ALERT AND ORIENTED x3. PATIENT IS BREATHING EVENLY AND UNLABORED ON ROOM AIR. DENIES ANY PAIN. PATIENT IS CONNECTED TO THE MONITOR.
[2021-05-29] MEDS ORDERED: ONDANSETRON HCL/PF 4 MG/2 ML VIAL IV ONE (21:00)
[2021-05-29] MEDS ORDERED: IV NS 0.9% 1,000 ML BAG IV ONE (21:00)
[2021-05-29] MEDS ORDERED: ONDANSETRON HCL/PF 4 MG/2 ML VIAL ONE (21:11)
[2021-05-29 21:16] LABS: BASOPHILS # (AUTO) 0.1 K/uL (0.0-0.2); BASOPHILS % (AUTO) 0.5 % (0.0-2.0); HEMATOCRIT 25 % (33-45); HEMOGLOBIN 7.4 g/dL (11.5-14.8); LYMPHOCYTES % (AUTO) 5.7 % (20.0-44.0); MEAN CORPUSCULAR HGB CONC 30 g/dl (31.0-36.0); MEAN CORPUSCULAR VOLUME 69 fL (82-100); MONOCYTES # (AUTO) 1.1 K/uL (0.1-1.30); NEUTROPHILS # (AUTO) 15.8 K/uL (1.8-8.9); NEUTROPHILS % (AUTO) 87.8 % (43.0-81.0); PLATELET COUNT (AUTO) 340 K/uL (150-450); RED BLOOD CELL COUNT(AUTO) 3.59 MIL/uL (4.0-5.2)
[2021-05-29 21:29] LABS: CALCIUM, SERUM 8.8 mg/dL (8.5-10.1); CARBON DIOXIDE 27 mmol/L (21-32); CHLORIDE 106 mmol/L (98-107); CREATININE 1.5 mg/dL (0.6-1.3); GLUCOSE 103 mg/dL (74-106); POTASSIUM 4.3 mmol/L (3.5-5.1); SODIUM SERUM 143 mmol/L (136-145); UREA NITROGEN, BLOOD 33 mg/dL (7-18)
[2021-05-29 21:36] LABS: ALANINE AMINOTRANSFERASE 13 U/L (12-78); ALBUMIN 3.3 g/dL (3.4-5.0); ALKALINE PHOSPHATASE 57 U/L (46-116); ASPARTATE AMINOTRANSFERASE 9 U/L (15-37); BILIRUBIN,DIRECT 0.1 mg/dL (0.0-0.2); BILIRUBIN,TOTAL 0.4 mg/dL (0.2-1.0); LIPASE 86 U/L (73-393); TOTAL PROTEIN, SERUM 6.4 g/dL (6.4-8.2)
--- NOTE | 2021-05-29 21:56 | NUR ---
CALLED FOR COVID SWAB
[2021-05-29] MEDS ORDERED: PIPERACILLIN /TAZOBACTAM 3.375 G VIAL IV ONE (22:29)
[2021-05-29] MEDS ORDERED: PIPERACILLIN /TAZOBACTAM 3.375 G in IV D5W 50 ML IV ONE (22:30)
[2021-05-29 22:47] LABS: BILIRUBIN,URINE SMALL (NEGATIVE); COLOR,URINE YELLOW (YELLOW); LEUKOCYTE ESTERASE ,URINE TRACE (NEGATIVE); NITRITE, URINE NEGATIVE (NEGATIVE); PROTEIN,URINE NEGATIVE (NEGATIVE); UGLUCOSE NEGATIVE (NEGATIVE); UROBILINOGEN,URINE 0.2 EU/dL (0.2)
[2021-05-29 22:54] LABS: BACTERIA,URINE Many /HPF (None Seen); RBC,URINE 0-2 /HPF (0-2); SQUAMOUS EPITHELIAL CELL,UR Few /HPF (None Seen)
[2021-05-29] MEDS ORDERED: MAG HYDROX/AL HYDROX/SIMETH 30 ML UDC PO PRN (23:30)
[2021-05-29] MEDS ORDERED: Z GUARD REMEDY 2 OZ OINT TP PRN (23:30)
[2021-05-29] MEDS ORDERED: ACETAMINOPHEN 325 MG TABLET PO PRN (23:30)
[2021-05-29] MEDS ORDERED: ONDANSETRON HCL/PF 4 MG/2 ML VIAL IVP PRN (23:30)
[2021-05-29] MEDS ORDERED: MAGNESIUM HYDROXIDE 30 ML UDC PO PRN (23:30)
[2021-05-30] VITALS (11 sets, daily range): BP systolic 137–180; BP diastolic 58–81
[2021-05-30] MEDS ORDERED: PIPERACILLIN /TAZOBACTAM 3.375 G in IV D5W 50 ML IV SCH
[2021-05-30] MEDS ORDERED: POLYETHYLENE GLYCOL 3350 17 GM POWD.PACK PO ONE (01:00)
--- NOTE | 2021-05-30 01:09 | NUR ---
REPORT GIVEN TO MARYCHUY TORRES FOR AVANI.
--- NOTE | 2021-05-30 01:26 | NUR ---
PATIENT IS ALERT AND ORIENTED x3. PATIENT DENIES PAIN. PATIENT IS TAKEN TO ROOM VIA ALS PROTOCOLS.
[2021-05-30] MEDS: SOD FERRIC GLUC 125 MG in IV NS 0.9% 100 ML IV SCH ×2 (01:41→15:32)
[2021-05-30] MEDS: IV D5/0.45 NACL 1,000 ML IV PRN ×2 (02:54→21:33)
[2021-05-30] MEDS ORDERED: PIPERACILLIN /TAZOBACTAM 3.375 G VIAL IV ONE (03:05)
[2021-05-30] MEDS ORDERED: PIPERACILLIN /TAZOBACTAM 3.375 G in IV D5W 50 ML IV ONE (04:00)
[2021-05-30] MEDS: LEVOTHYROXINE SODIUM 75 MCG TABLET PO SCH (06:27)
[2021-05-30 07:00] LABS: CALCIUM, SERUM 7.9 mg/dL (8.5-10.1); CREATININE 1.2 mg/dL (0.6-1.3); POTASSIUM 3.8 mmol/L (3.5-5.1)
--- NOTE | 2021-05-30 07:01 | NUR ---
NURSE OPENING NOTE RECEIVE REPORT FROM FUEL CELL TECHNICIAN NURSE. PATIENT IN STABLE CONDITION. PATIENT WAS ADMITTED LAST NIGHT FROM [facility] FOR NAUSEA AND VOMITING WITH POSSIBLE ACUTE CHOLECYSTITIS. PATIENT HAVE NOT HAD SYMPTOM OF NAUSEA AND VOMITING SINCE ADMISSION. PATIENT IS ON ROOM AIR. A/O X3. PATIENT IS NPO AND WAITING TO BE SEEN BY DOCTOR. WILL CONTINUE TO MONITOR
[2021-05-30 07:20] LABS: BASOPHILS # (AUTO) 0.1 K/uL (0.0-0.2); BASOPHILS % (AUTO) 0.5 % (0.0-2.0); HEMATOCRIT 22 % (33-45); LYMPHOCYTES % (AUTO) 8.1 % (20.0-44.0); MEAN CORPUSCULAR HGB CONC 31 g/dl (31.0-36.0); MEAN CORPUSCULAR VOLUME 68 fL (82-100); MONOCYTES # (AUTO) 0.8 K/uL (0.1-1.30); MONOCYTES % (AUTO) 6.7 % (2.0-12.0); NEUTROPHILS # (AUTO) 10.6 K/uL (1.8-8.9); NEUTROPHILS % (AUTO) 84.7 % (43.0-81.0); PLATELET COUNT (AUTO) 301 K/uL (150-450); RED BLOOD CELL COUNT(AUTO) 3.26 MIL/uL (4.0-5.2); WHITE BLOOD COUNT (AUTO) 12.5 K/uL (4.3-11.0)
[2021-05-30 07:21] LABS: ALBUMIN 2.9 g/dL (3.4-5.0); BILIRUBIN,DIRECT 0.1 mg/dL (0.0-0.2); BILIRUBIN,TOTAL 0.4 mg/dL (0.2-1.0); MAGNESIUM 2.2 mg/dL (1.8-2.4); TOTAL PROTEIN, SERUM 5.8 g/dL (6.4-8.2)
[2021-05-30 07:29] LABS: HEMOGLOBIN 6.8 g/dL (11.5-14.8); THYROID STIMULATING HORMONE 1.166 uIU/mL (0.358-3.74)
[2021-05-30] MEDS: PANTOPRAZOLE 40 MG VIAL IV SCH (08:51)
[2021-05-30] MEDS: DOCUSATE SODIUM 250 MG CAPSULE PO SCH ×2 (08:52→17:24)
[2021-05-30] MEDS: risperiDONE 1 MG TABLET PO SCH ×2 (08:52→17:24)
[2021-05-30] MEDS: POTASSIUM CHLORIDE 20 MEQ TAB.PRT.SR PO SCH (08:52)
[2021-05-30] MEDS: AMLODIPINE BESYLATE 5 MG TABLET PO SCH (08:52)
[2021-05-30] MEDS: CHOLECALCIFEROL 1,000 UNIT TABLET (VIT D3) PO SCH (08:53)
[2021-05-30] MEDS: BENAZEPRIL HCL 10 MG TABLET PO SCH (08:53)
[2021-05-30] MEDS: ENOXAPARIN SODIUM 30 MG/0.3 ML DISP.SYRIN SQ SCH (08:59)
[2021-05-30 10:29] LABS: LYMPHOCYTES % (MANUAL) 6 % (16-48); MONOCYTES % (MANUAL) 8 % (0-11.0); NEUTROPHILS % (MANUAL) 86 (42-76)
[2021-05-30 11:29] LABS: IRON, SERUM 8 ug/dl (50-175); TOTAL IRON BINDING CAPACITY 324 ug/dl (250-450)
[2021-05-30] MEDS: ZOSYN IVPB 2.25 G in IV D5W 50ml IV SCH ×2 (11:45→19:09)
--- NOTE | 2021-05-30 18:56 | NUR ---
NURSE CLOSING NOTE PATIENT IS STABLE THROUGH OUT SHIFT. A/O X3. PATIENT IS NPO. HEMOGLOBIN IS 6.8. ONE UNIT OF PRBC IS BEING GIVEN. ANOTHER IV HAVE BEEN STARTED 22G ON RIGHT HAND. NEED TO OBTAIN OCCULT BLOOD. PATIENT DID NOT HAVE BOWEL MOVEMENT DURING DAY SHIFT. SAFETY MEASURE IN PLACE. BED ON THE LOWEST POSITION WITH HOB ELEVATED. 3 SIDE RAIL UP. CALL LIGHT WITHIN REACH. WILL CONTINUE TO MONITOR AND GIVE REPORT TO ON COMING NURSE.
--- NOTE | 2021-05-30 19:20 | NUR ---
MS RN OPENING NOTES: RECEIVED PATIENT IN BED, AWAKE, A/O X3, FORGETFUL. NO S/S OF DISTRESS NOTED. NO COMPLAIN OF PAIN. SON AT THE BEDSIDE. HOB ELEVATED. ON BLOOD TRANSFUSION GOING ON. CALL LIGHT WITHIN REACH. BED IN LOWEST AND LOCKED POSITION. BED ALARM ON. NPO, REMINDED THE PATIENT.
--- NOTE | 2021-05-30 21:06 | NUR ---
END OF BLOOD TRANSFUSION, NO REACTIONS NOTED. PATIENT IS AWAKE. NO COMPLAIN OF PAIN. V/S TAKEN AND RECORDED.
[2021-05-30] MEDS: ATORVASTATIN 10 MG TABLET PO SCH (22:00)
[2021-05-30] MEDS: TRAZODONE 50 MG TABLET PO SCH (22:00)
[2021-05-30] MEDS: OLANZAPINE 10 MG TABLET PO SCH (22:00)
[2021-05-30] MEDS ORDERED: OLANZAPINE 10 MG VIAL IM ONE (23:00)
[2021-05-31] MEDS: ZOSYN IVPB 2.25 G in IV D5W 50ml IV SCH ×4 (00:41→17:29)
--- NOTE | 2021-05-31 06:31 | NUR ---
MS RN CLOSING NOTES: PATIENT IN BED, AWAKE, CONFUSED. NO S/S OF DISTRESS NOTED. CALL LIGHT WITHIN REACH. BED ALARM ON. BED IN LOWEST AND LOCKED POSITION. HOB ELEVATED. RESTED THROUGHOUT THE NIGHT. STILL NPO. PATIENT REMOVED THE IV ON THE RIGHT HAND.
[2021-05-31] MEDS: LEVOTHYROXINE SODIUM 75 MCG TABLET PO SCH ×2 (07:00→07:53)
--- NOTE | 2021-05-31 07:35 | NUR ---
RN OPENING NOTE RECEIVED PATIENT AWAKE IN BED. ALERT AND ORIENTED X 3 WITH CONFUSION. NO SOB. SO S/S OF DISTRESS NOTED. BREATHING IS EVEN AND UNLABORED. IV ACCESS RAC#18 PATENT AND INTACT. SAFETY MEASURES IN PLACE WITH BED LOCKED AT LOW POSITION AND SIDE RAILS UP X 2. WILL CONTINUE TO MONITOR PATIENT THROUGHOUT SHIFT.
[2021-05-31] MEDS: CHOLECALCIFEROL 1,000 UNIT TABLET (VIT D3) PO SCH ×3 (09:00→09:28)
[2021-05-31] MEDS: AMLODIPINE BESYLATE 5 MG TABLET PO SCH ×2 (09:00→09:16)
[2021-05-31] MEDS: DOCUSATE SODIUM 250 MG CAPSULE PO SCH ×3 (09:00→17:14)
[2021-05-31] MEDS: risperiDONE 1 MG TABLET PO SCH ×3 (09:00→17:14)
[2021-05-31] MEDS: BENAZEPRIL HCL 10 MG TABLET PO SCH ×3 (09:00→09:28)
[2021-05-31] MEDS: ENOXAPARIN SODIUM 30 MG/0.3 ML DISP.SYRIN SQ SCH (09:00)
[2021-05-31] MEDS: PANTOPRAZOLE 40 MG VIAL IV SCH (09:15)
[2021-05-31] MEDS: POTASSIUM CHLORIDE 20 MEQ TAB.PRT.SR PO SCH (09:20)
[2021-05-31 11:58] LABS: HEMATOCRIT 30 % (33-45); HEMOGLOBIN 9.3 g/dL (11.5-14.8); LYMPHOCYTES % (AUTO) 8.5 % (20.0-44.0); MEAN CORPUSCULAR HGB CONC 31 g/dl (31.0-36.0); MEAN CORPUSCULAR VOLUME 72 fL (82-100); MONOCYTES % (AUTO) 7.7 % (2.0-12.0); NEUTROPHILS % (AUTO) 83.4 % (43.0-81.0); PLATELET COUNT (AUTO) 302 K/uL (150-450); RED BLOOD CELL COUNT(AUTO) 4.12 MIL/uL (4.0-5.2); WHITE BLOOD COUNT (AUTO) 9.2 K/uL (4.3-11.0)
[2021-05-31 11:59] LABS: BASOPHILS % (AUTO) 0.4 % (0.0-2.0); LYMPHOCYTES # (AUTO) 0.8 K/uL (0.8-4.8); MONOCYTES # (AUTO) 0.7 K/uL (0.1-1.30); NEUTROPHILS # (AUTO) 7.7 K/uL (1.8-8.9)
[2021-05-31 12:00] VITALS: BP 156/73
[2021-05-31] MEDS: SOD FERRIC GLUC 125 MG in IV NS 0.9% 100 ML IV SCH (14:42)
--- NOTE | 2021-05-31 18:53 | NUR ---
RN CLOSING NOTE PATIENT AWAKE IN BED, RESTING. ALERT AND ORIENTED X 3 WITH CONFUSION. NO SOB. SO S/S OF DISTRESS NOTED. BREATHING IS EVEN AND UNLABORED. IV ACCESS RAC#18 PATENT AND INTACT. SAFETY MEASURES MAINTAINED WITH BED LOCKED AT LOW POSITION AND SIDE RAILS UP X 2. WILL ENDORSE CONTINUITY OF CARE TO ONCOMING SHIFT.
[2021-05-31 20:00] VITALS: BP 142/79
[2021-05-31] MEDS: OLANZAPINE 10 MG TABLET PO SCH (22:29)
[2021-05-31] MEDS: ATORVASTATIN 10 MG TABLET PO SCH (22:29)
[2021-05-31] MEDS: TRAZODONE 50 MG TABLET PO SCH (22:29)
[2021-06-01] MEDS: ZOSYN IVPB 2.25 G in IV D5W 50ml IV SCH ×2 (00:11→06:17)
[2021-06-01 04:00] VITALS: BP 153/76
--- NOTE | 2021-06-01 07:25 | NUR ---
RN CLOSING NOTE RESTING COMFORTABLY IN BED, EASILY AROUSABLE TO STIMULI, DENIES PAIN/DISCOMFORT AT THIS TIME. RESPIRATIONS EVEN/UNLABORED, ON ROOM AIR AND AKASH. WELL. NO ACUTE EVENTS DURING THE NIGHT. SAFETY MEASURES MAINTAINED. ENDORSED TO NEXT SHIFT NURSE.
--- NOTE | 2021-06-01 07:38 | NUR ---
RN OPENING NOTE PATIENT RECEIVED IN BED, SLEEPING. PATIENT ON ROOM AIR WITH NO SIGNS OF LABORED BREATHING AT THIS TIME. R AC 18G IN PLACE. BED LOCKED AND IN LOWEST POSITION, 3 SIDE RAILS UP, CALL LIGHT WITHIN REACH. WILL CONTINUE TO MONITOR.
[2021-06-01] MEDS: LEVOTHYROXINE SODIUM 75 MCG TABLET PO SCH (07:44)
[2021-06-01 08:00] VITALS: BP 173/91
[2021-06-01] MEDS: BENAZEPRIL HCL 10 MG TABLET PO SCH (08:05)
[2021-06-01] MEDS: PANTOPRAZOLE 40 MG VIAL IV SCH (08:05)
[2021-06-01] MEDS: risperiDONE 1 MG TABLET PO SCH ×2 (08:06→16:10)
[2021-06-01] MEDS: AMLODIPINE BESYLATE 5 MG TABLET PO SCH (08:06)
[2021-06-01] MEDS: POTASSIUM CHLORIDE 20 MEQ TAB.PRT.SR PO SCH (08:06)
[2021-06-01] MEDS: CHOLECALCIFEROL 1,000 UNIT TABLET (VIT D3) PO SCH (08:06)
[2021-06-01 09:33] LABS: OCCULT BLOOD STOOL POSITIVE (NEGATIVE)
[2021-06-01] MEDS: MEROPENEM 500 MG in IV NS 0.9% 50 ML IV SCH ×2 (11:35→23:16)
[2021-06-01 12:00] VITALS: BP 102/68
[2021-06-01 13:00] VITALS: BP 102/68
[2021-06-01] MEDS: SOD FERRIC GLUC 125 MG in IV NS 0.9% 100 ML IV SCH (14:07)
[2021-06-01 16:00] VITALS: BP 92/40
[2021-06-01] MEDS: DOCUSATE SODIUM LIQ 100 MG/10 ML UDC GT SCH (16:20)
--- NOTE | 2021-06-01 19:44 | NUR ---
RN CLOSING NOTE PATIENT IN BED, AWAKE, A&OX2. F UPPER ARM MIDLINE IN PLACE AND PATENT. PATIENT ON ROOM AIR WITH NO SIGNS OF LABORED BREATHING AT THIS TIME. BED LOCKED AND IN LOWEST POSITION, 3 SIDE RAILS UP, CALL LIGHT WITHIN REACH. WILL ENDORSE TO VARNISHING UNIT OPERATOR NURSE.
[2021-06-01 21:00] VITALS: BP 102/40
[2021-06-01] MEDS: OLANZAPINE 10 MG TABLET PO SCH (21:55)
[2021-06-01] MEDS: ATORVASTATIN 10 MG TABLET PO SCH (21:55)
[2021-06-01] MEDS: TRAZODONE 50 MG TABLET PO SCH (21:55)
[2021-06-02 04:00] VITALS: BP 148/71
[2021-06-02 05:00] VITALS: BP 148/71
[2021-06-02] MEDS ORDERED: ALENDRONATE 70 MG TABLET PO SCH (06:00)
--- NOTE | 2021-06-02 06:00 | NUR ---
RN NOTE NO SIGNIFICANT CHANGES DURING SHIFT. PATIENT SLEPT WELL THROUGH THE NIGHT. AOX3, FORGETFUL BUT EASILY AROUSABLE. BREATHING EVEN AND UNLABORED. PATIENT ON LOW FLOW OXYGEN. NO SOB NOTED, NO COUGH/CONGESTION. NO EPISODE OF NAUSEA/VOMITING. NO COMPLAINTS OF PAIN. IV PATENT, INTACT, NO ADVERSE REACTION DURING ATB THERAPY. KEPT CLEAN AND DRY AT ALL TIMES. ALL DUE MEDICATIONS ADMINISTERED. CALL LIGHT WITHIN REACH.
--- NOTE | 2021-06-02 07:34 | NUR ---
RN OPENING NOTE PATIENT RECEIVED IN BED, A&OX3. ON 2L O2 NC WITH NO SIGNS OF LABORED BREATHING AT THIS TIME. L UPPER ARM MIDLINE IN PLACE. BED LOCKED AND IN LOWEST POSITION, 3 SIDE RAILS UP, CALL LIGHT WITHIN REACH. WILL CONTINUE TO MONITOR.
[2021-06-02 08:00] VITALS: BP 129/60
[2021-06-02] MEDS: AMLODIPINE BESYLATE 5 MG TABLET PO SCH (08:05)
[2021-06-02] MEDS: PANTOPRAZOLE 40 MG TABLET.DR PO SCH (08:05)
[2021-06-02] MEDS: LEVOTHYROXINE SODIUM 75 MCG TABLET PO SCH (08:05)
[2021-06-02] MEDS: CHOLECALCIFEROL 1,000 UNIT TABLET (VIT D3) PO SCH (08:05)
[2021-06-02] MEDS: DOCUSATE SODIUM LIQ 100 MG/10 ML UDC GT SCH ×2 (08:05→16:18)
[2021-06-02] MEDS: risperiDONE 1 MG TABLET PO SCH ×2 (08:06→16:17)
[2021-06-02] MEDS: BENAZEPRIL HCL 10 MG TABLET PO SCH (08:06)
[2021-06-02] MEDS: POTASSIUM CHLORIDE 20 MEQ TAB.PRT.SR PO SCH (08:06)
[2021-06-02 08:54] LABS: BASOPHILS # (AUTO) 0.1 K/uL (0.0-0.2); BASOPHILS % (AUTO) 0.8 % (0.0-2.0); HEMATOCRIT 31 % (33-45); HEMOGLOBIN 9.7 g/dL (11.5-14.8); LYMPHOCYTES # (AUTO) 1.1 K/uL (0.8-4.8); LYMPHOCYTES % (AUTO) 12.4 % (20.0-44.0); MEAN CORPUSCULAR HGB CONC 31 g/dl (31.0-36.0); MEAN CORPUSCULAR VOLUME 72 fL (82-100); MONOCYTES # (AUTO) 0.9 K/uL (0.1-1.30); MONOCYTES % (AUTO) 9.9 % (2.0-12.0); NEUTROPHILS # (AUTO) 6.7 K/uL (1.8-8.9); NEUTROPHILS % (AUTO) 76.9 % (43.0-81.0); PLATELET COUNT (AUTO) 333 K/uL (150-450); RED BLOOD CELL COUNT(AUTO) 4.31 MIL/uL (4.0-5.2); WHITE BLOOD COUNT (AUTO) 8.7 K/uL (4.3-11.0)
--- NOTE | 2021-06-02 10:11 | NUR ---
WOUND CARE CONSULT: PT PRESENTS WITH RT ELBOW SKIN TEAR AND LEFT FOOT DRY DISCOLORATION/ABRASION. NO ERYTHEMA, DRAINAGE OR TENDERNESS NOTED TO FOOT. RECOMMENDATIONS MADE FOR WOUND CARE OF ELBOW SKIN TEAR AND SKIN PROTECTION. DISCUSSED WITH NURSING STAFF. MD IN AGREEMENT WITH PLAN OF CARE.
[2021-06-02] MEDS: MEROPENEM 500 MG in IV NS 0.9% 50 ML IV SCH ×3 (11:43→23:56)
--- NOTE | 2021-06-02 15:39 | NUR ---
RN NOTE PATIENT LEFT UPPER ARM MIDLINE NOT FLUSHING, NOT PATENT. ALL IV MEDICATION WITHHELD UNTIL NEW MIDLINE PLACEMENT. MIDLINE PLACEMENT REQUESTED.
--- NOTE | 2021-06-02 18:53 | NUR ---
RN CLOSING NOTE PATIENT IN BED, AWAKE. ON 2L O2 NC WITH NO SIGNS OF LABORED BREATHING AT THIS TIME. R MIDLINE 18G IN PLACE AND PATENT. BED LOCKED AND IN LOWEST POSITION, 3 SIDE RAILS UP, CALL LIGHT WITHIN REACH. ALL SAFETY MEASURES IMPLEMENTED. WILL ENDORSE TO DENTURE FINISHER NURSE.
--- NOTE | 2021-06-02 19:35 | NUR ---
MS/RN OPENING NOTE RECEIVED PATIENT RESTING IN BED. AWAKE, ALERT AND ORIENTED X 3. ABLE TO MAKE NEEDS KNOWN. FORGETFUL AT TIMES. CONTINUES ON 2L O2 VIA NC WITH NO S/SX OF RESPIRATORY DISTRESS NOTED. IV ACCESS TO RIGHT UPPER ARM MIDLINE #18G INTACT, PATENT AND SALINE LOCKED. CONTINUES ON IV ABX. CONTINUES ON SOFT DIET WITH NO S/SX OF ASPIRATION NOTED. CALL LIGHT WITHIN REACH. ASPIRATION, FALL AND SAFETY PRECAUTIONS MAINTAINED. WILL CONTINUE TO MONITOR.
[2021-06-02] MEDS: SOD FERRIC GLUC 125 MG in IV NS 0.9% 100 ML IV SCH (20:59)
[2021-06-02 21:00] VITALS: BP 104/56
[2021-06-02] MEDS: TRAZODONE 50 MG TABLET PO SCH (22:32)
[2021-06-02] MEDS: ATORVASTATIN 10 MG TABLET PO SCH (22:32)
[2021-06-02] MEDS: OLANZAPINE 10 MG TABLET PO SCH (22:32)
[2021-06-03 05:00] VITALS: BP 143/61
--- NOTE | 2021-06-03 06:25 | NUR ---
MS/RN CLOSING NOTE PATIENT CURRENTLY SLEEPING IN BED. ALERT AND ORIENTED X 3. ABLE TO MAKE NEEDS KNOWN. FORGETFUL AT TIMES. CONTINUES ON 2L O2 VIA NC WITH NO S/SX OF RESPIRATORY DISTRESS NOTED. IV ACCESS TO RIGHT UPPER ARM MIDLINE #18G INTACT, PATENT AND SALINE LOCKED. CONTINUES ON IV ABX. CONTINUES ON SOFT DIET WITH NO S/SX OF ASPIRATION NOTED. CALL LIGHT WITHIN REACH. ASPIRATION, FALL AND SAFETY PRECAUTIONS MAINTAINED. WILL ENDORSE PLAN OF CARE TO ONCOMING SHIFT.
--- NOTE | 2021-06-03 07:21 | NUR ---
RN NOTE PATIENT IS IN BED WITH HOB AT SEMI FOWLERS POSITION. PATIENT IS ON 2L NC WITH NO SIGNS OF LABORED BREATHING. PATIENT IS AOX3. JAYLENE MIDLINE IS PATENT AND INTACT. BED IS LOCKED IN THE LOWEST POSITION, 3 GUARD RAILS RAISED, CALL MCKEON WITHIN REACH, AND ALL HOSPITAL SAFETY PRECAUTIONS ARE BEING FOLLOWED. WILL CONTINUE TO MONITOR THROUGHOUT SHIFT.
--- NOTE | 2021-06-03 08:00 | NUR ---
RN NOTE NOTED DRESSING ON RIGHT ELBOW HAD FALLEN OFF. DRESSING CHANGED FOR OPEN WOUND ON RIGHT ELBOW. DENIES PAIN. OFFLOADING OF HEELS OBSERVED. ASSISTED WITH TURNING AND REPOSITIONING. Addendum: 06/03/21 at 2144 by MARTA FUNES RN WRONG TIME.
[2021-06-03] MEDS: CHOLECALCIFEROL 1,000 UNIT TABLET (VIT D3) PO SCH (08:43)
[2021-06-03] MEDS: BENAZEPRIL HCL 10 MG TABLET PO SCH (08:43)
[2021-06-03] MEDS: PANTOPRAZOLE 40 MG TABLET.DR PO SCH (08:44)
[2021-06-03] MEDS: DOCUSATE SODIUM LIQ 100 MG/10 ML UDC GT SCH ×3 (08:44→16:27)
[2021-06-03] MEDS: risperiDONE 1 MG TABLET PO SCH ×2 (08:44→16:17)
[2021-06-03] MEDS: POTASSIUM CHLORIDE 20 MEQ TAB.PRT.SR PO SCH (08:44)
[2021-06-03] MEDS: LEVOTHYROXINE SODIUM 75 MCG TABLET PO SCH (08:44)
[2021-06-03] MEDS: AMLODIPINE BESYLATE 5 MG TABLET PO SCH (08:44)
[2021-06-03] MEDS: MEROPENEM 500 MG in IV NS 0.9% 50 ML IV SCH (11:09)
[2021-06-03] MEDS: SOD FERRIC GLUC 125 MG in IV NS 0.9% 100 ML IV SCH (13:19)
--- NOTE | 2021-06-03 18:42 | NUR ---
RN NOTE PATIENT IS IN BED WITH HOB AT SEMI FOWLERS POSITION. PATIENT IS ON 2L NC WITH NO SIGNS OF LABORED BREATHING. PATIENT IS AOX3. JAYLENE MIDLINE IS PATENT AND INTACT. BED IS LOCKED IN THE LOWEST POSITION, 3 GUARD RAILS RAISED, CALL [place] WITHIN REACH, AND ALL HOSPITAL SAFETY PRECAUTIONS ARE BEING FOLLOWED. PATIENT REMAINED STABLE THROUGHOUT SHIFT. WILL ENDORSE TO PLASTICS TOOLING ENGINEER RN.
--- NOTE | 2021-06-03 20:00 | NUR ---
RN NOTE RECEIVED PATIENT IN BED, AWAKE, ALERT, AND RESPONSIVE. BREATHING EVEN AND UNLABORED. ON LOW FLOW OXYGEN 2L/MIN. NO SOB NOTED. HOB ELEVATED 35 DEGREES. SKIN WARM AND DRY. DENIES PAIN AT THIS TIME. NOTED DRESSING ON RIGHT ELBOW HAD FALLEN OFF. DRESSING CHANGED FOR OPEN WOUND ON RIGHT ELBOW. DENIES PAIN. OFFLOADING OF HEELS OBSERVED. ASSISTED WITH TURNING AND REPOSITIONING. NOTED WITH LEFT UPPER ARM MIDLINE, NOT FLUSHING DESPITE ARM REPOSITIONING, BUT INTACT. NOTED WITH RIGHT UPPER ARM MIDLINE, FLUSHING AND PATENT. NO INFILTRATION NOTED. BED LOCKED, IN LOW POSITION, CALL LIGHT WITHIN REACH.
[2021-06-03 21:00] VITALS: BP 127/59
[2021-06-03] MEDS: ATORVASTATIN 10 MG TABLET PO SCH (21:21)
[2021-06-03] MEDS: TRAZODONE 50 MG TABLET PO SCH (21:21)
[2021-06-03] MEDS: OLANZAPINE 10 MG TABLET PO SCH (21:21)
[2021-06-04] MEDS: MEROPENEM 500 MG in IV NS 0.9% 50 ML IV SCH ×2 (01:00→12:12)
[2021-06-04 05:00] VITALS: BP 168/78
[2021-06-04] MEDS ORDERED: hydrALAZINE HCL 10 MG TABLET PO ONE (05:30)
--- NOTE | 2021-06-04 05:39 | NUR ---
RN NOTE PATIENT NOTED TO HAVE BP OF 168/78, HR OF 79. NO PRN BLOOD PRESSURE MEDICATION AVAILABLE. PATIENT WITH SCHEDULED BP MEDICATIONS IN THE AM. NOTIFIED DISPENSING OPTICIAN APPRENTICE DR. BARRETO. PER MD ORDER, ADMINISTER HYDRALAZINE 10 MG PO ONCE. NEW ORDER NOTED AND CARRIED OUT. PATIENT DENIES HEADACHE. STATES SHE IS FEELING "FINE" AT THIS TIME. WILL CONTINUE TO MONITOR.
[2021-06-04 06:24] LABS: BASOPHILS # (AUTO) 0.1 K/uL (0.0-0.2); BASOPHILS % (AUTO) 0.9 % (0.0-2.0); HEMATOCRIT 25 % (33-45); HEMOGLOBIN 7.8 g/dL (11.5-14.8); LYMPHOCYTES # (AUTO) 1.2 K/uL (0.8-4.8); LYMPHOCYTES % (AUTO) 14.6 % (20.0-44.0); MEAN CORPUSCULAR HGB CONC 32 g/dl (31.0-36.0); MEAN CORPUSCULAR VOLUME 73 fL (82-100); MONOCYTES # (AUTO) 0.9 K/uL (0.1-1.30); MONOCYTES % (AUTO) 10.9 % (2.0-12.0); NEUTROPHILS # (AUTO) 6.2 K/uL (1.8-8.9); NEUTROPHILS % (AUTO) 73.6 % (43.0-81.0); PLATELET COUNT (AUTO) 257 K/uL (150-450); RED BLOOD CELL COUNT(AUTO) 3.36 MIL/uL (4.0-5.2); WHITE BLOOD COUNT (AUTO) 8.4 K/uL (4.3-11.0)
[2021-06-04 06:58] LABS: CALCIUM, SERUM 8.1 mg/dL (8.5-10.1); CREATININE 0.9 mg/dL (0.6-1.3); POTASSIUM 3.4 mmol/L (3.5-5.1)
[2021-06-04 08:00] VITALS: BP 163/74
[2021-06-04] MEDS: risperiDONE 1 MG TABLET PO SCH (08:13)
[2021-06-04] MEDS: PANTOPRAZOLE 40 MG TABLET.DR PO SCH (08:15)
[2021-06-04] MEDS: CHOLECALCIFEROL 1,000 UNIT TABLET (VIT D3) PO SCH (08:15)
[2021-06-04] MEDS: LEVOTHYROXINE SODIUM 75 MCG TABLET PO SCH (08:17)
[2021-06-04] MEDS: BENAZEPRIL HCL 10 MG TABLET PO SCH (08:20)
[2021-06-04] MEDS: AMLODIPINE BESYLATE 5 MG TABLET PO SCH (08:21)
[2021-06-04] MEDS: DOCUSATE SODIUM LIQ 100 MG/10 ML UDC GT SCH (08:40)
[2021-06-04] MEDS ORDERED: POTASSIUM CHLORIDE 20 MEQ POWDER PACKET PO SCH (09:00)
[2021-06-04] MEDS ORDERED: MERO500V23 IV (09:46)
[2021-06-04] MEDS: SOD FERRIC GLUC 125 MG in IV NS 0.9% 100 ML IV SCH (13:22)
--- NOTE | 2021-06-04 15:47 | NUR ---
RN NOTE GAVE REPORT TO MEL[facility]ENDEZ AT [facility]. AWAITING EMT TRANSFER.
[2021-06-04 16:00] VITALS: BP 117/62
--- NOTE | 2021-06-04 16:00 | NUR ---
RN NOTE PATIENT DISCHARGED IN STABLE CONDITION.
== END 2021-06-04 16:52 | DRG 682 ==
LOC: ER 20:40 → TELE1 05-30 01:05 → MEDSG1 05-30 01:54
PROVIDERS: ADMIT Registered Nurse; ATTEND Family Medicine
PROC: 30233N1 Transfusion of Nonautologous Red Blood Cells into Peripheral Vein, Percutaneous Approach (ICD-10-PCS; principal; 2021-05-30)
PROC: 05H633Z Insertion of Infusion Device into Left Subclavian Vein, Percutaneous Approach (ICD-10-PCS; 2021-06-01)
PROC: B547ZZA Ultrasonography of Left Subclavian Vein, Guidance (ICD-10-PCS; 2021-06-01)
PROC: 05H533Z Insertion of Infusion Device into Right Subclavian Vein, Percutaneous Approach (ICD-10-PCS; 2021-06-02)
PROC: B546ZZA Ultrasonography of Right Subclavian Vein, Guidance (ICD-10-PCS; 2021-06-02)
DX: N17.0 Acute kidney failure with tubular necrosis (principal); G93.41 Metabolic encephalopathy; N39.0 Urinary tract infection, site not specified; Z16.12 Extended spectrum beta lactamase (ESBL) resistance; K44.9 Diaphragmatic hernia without obstruction or gangrene; M81.0 Age-related osteoporosis without current pathological fracture; Z86.16 Personal history of COVID-19; E86.0 Dehydration; E03.9 Hypothyroidism, unspecified; Z20.822 Contact with and (suspected) exposure to COVID-19; I10 Essential (primary) hypertension; Z87.01 Personal history of pneumonia (recurrent); I25.10 Atherosclerotic heart disease of native coronary artery without angina pectoris; Z90.49 Acquired absence of other specified parts of digestive tract; B96.20 Unspecified Escherichia coli [E. coli] as the cause of diseases classified elsewhere; D50.9 Iron deficiency anemia, unspecified; E78.5 Hyperlipidemia, unspecified; F32.A Depression, unspecified; J44.9 Chronic obstructive pulmonary disease, unspecified; Z90.710 Acquired absence of both cervix and uterus; K59.00 Constipation, unspecified; G30.9 Alzheimer's disease, unspecified; F02.80 Dementia in other diseases classified elsewhere, unspecified severity, without behavioral disturbance, psychotic disturbance, mood disturbance, and anxiety; Z88.2 Allergy status to sulfonamides; R09.02 Hypoxemia
CPT/HCPCS: 36410; 36415; 71045-TC; 76705-TC; 80048-TC; 80061-TC; 80076-TC; 81001; 82272-TC; 82728-TC; 83540-TC; 83690-TC; 83735-TC; 84100-TC; 84443-TC; 84484-TC; 85025-TC; 86850-TC; 87040-TC; 87045-TC; 87081-TC; 87086-TC; 87186-TC; 93307-TC; C9113; C9803; G0378; J1650; J2185; J2405; J2543; J2916; J3490; J7030; J7042; J7050; J7060; P9016; U0003